=== PATIENT | male | born 1970 | race Caucasian/White ===

== ENCOUNTER 2023-08-05 10:56 | Outpatient (REF) | payer SELFPAY ==
[2023-08-05 13:05] LABS: MANUAL DIFF FLAG NO
[2023-08-05 13:25] LABS: Basophils Percent Auto 0.7 % (0-2); Eosinophils Absolute Auto 0.1 X10*3/uL (0.0-0.4); Eosinophils Percent Auto 1.1 % (0-4); Hematocrit 40.8 % (42.0-52.0); Hemoglobin 14.2 g/dl (14.0-18.0); Imm Gran Abs Auto 0.02 X10*3/uL (0.00-0.03); Imm Gran Pct Auto 0.4 % (0.0-0.4); Lymphocytes Absolute Auto 1.8 X10*3/uL (1.2-4.9); Lymphocytes Percent Auto 33.1 % (20-40); Mean Corpuscular HGB Conc 34.8 g/dl (31.0-36.0); Mean Corpuscular Hemoglobin 30.9 pg (27.0-33.0); Mean Corpuscular Volume 88.7 fL (80.0-98.0); Monocytes Absolute Auto 0.4 X10*3/uL (0.1-1.2); Monocytes Percent Auto 6.5 % (2-11); Neutrophils Absolute Auto 3.1 x10*3/uL (2.0-8.3); Neutrophils Percent Auto 58.2 % (45-73); Platelet Count 236 X10*3/uL (160-400); Red Cell Distribution Width 11.5 % (11.0-16.0); White Blood Count 5.4 X10*3/uL (4.8-10.8)
[2023-08-05 13:35] LABS: Estimated Average Glucose 103 mg/dL; Hemoglobin A1c % 5.2 % (<6.0)
[2023-08-05 13:57] LABS: Cortisol Random 9.8 ug/dL
[2023-08-05 14:00] LABS: Ferritin 102 ng/mL (20-250); Free T4 (Free Thyroxine) 0.84 ng/dL (0.71-1.85); Thyroid Stimulating Hormone 1.15 uIU/mL (0.32-4.0)
[2023-08-05 14:04] LABS: Alanine Aminotransferase 25 U/L (0-40); Alkaline Phosphatase 36 U/L (39-117); Amylase 88 U/L (28-100); Anion Gap 11 (12-20); Aspartate Amino Transferase 21 U/L (5-37); Bilirubin Total 0.5 mg/dL (0.0-1.0); Blood Urea Nitrogen 12 mg/dL (9-16); C Reactive Protein < 0.04 mg/dL (< or = 0.50); Calcium 9.1 mg/dL (8.4-10.2); Carbon Dioxide 25 mmol/L (22-29); Chloride 108 mmol/L (96-108); Estimated Glomerular Filt Rate > 60; Glucose Random 100 mg/dL (60-115); Iron 63 mcg/dL (45-160); Lipase 93 U/L (8-78); Percent Iron Saturation 24 % (15-50); Potassium 4.1 mmol/L (3.3-5.1); Sodium 140 mmol/L (135-145); Total Iron Binding Capacity 262 mcg/dL (228-428); Total Protein 6.7 g/dL (6.5-8.0); Unsaturated Iron Binding 199 ug/dL
[2023-08-05 14:06] LABS: Erythrocyte Sedimentation Rate 3 MM/HR (0-15)
[2023-08-07 01:38] LABS: Thyroid Peroxidase Antibodies 2 IU/mL (<9)
[2023-08-07 15:54] LABS: Calcium (PTHI) 8.9 mg/dL (8.6-10.3); PTHI 42 pg/mL (16-77)
== END 2023-08-05 10:57 | disposition home or self-care (01) ==
LOC: HO.MANLDS 10:56
PROVIDERS: Visit Provider Physician Assistant
DX: R63.4 Abnormal weight loss (principal); R73.01 Impaired fasting glucose; D64.9 Anemia, unspecified
CPT/HCPCS: 36415; 80053; 82150; 82533; 82728; 83036; 83540; 83690; 83970; 84439; 84443; 85025; 85652; 86140; 86376

== ENCOUNTER 2023-10-07 10:18 | Outpatient (REF) | payer BC, SELFPAY ==
[2023-10-07 13:29] LABS: Appearance Urine Clear; Color Urine Yellow; Glucose Urine UA Negative (Negative); Leukocyte Esterase Urine Negative (Negative); Nitrite Urine Negative (Negative); Specific Gravity - Urine <= 1.005 (1.005-1.025); Urine Blood Negative (Negative); Urine Ketones Negative (Negative); Urine Protein Negative (Neg-Trace)
[2023-10-07 13:36] LABS: Bacteria Urine None Seen (None Seen); Hyaline Casts Urine 0-2 /LPF (0-2); RBC Urine 0-2 /HPF (0-2); Squamous Epithelial Cell Urine 0-2 /HPF (0-2); WBC Urine 0-5 /HPF (0-5)
== END 2023-10-07 10:19 | disposition home or self-care (01) ==
LOC: HO.MANLDS 10:18
PROVIDERS: Visit Provider Physician Assistant
DX: R30.0 Dysuria (principal)
CPT/HCPCS: 81001

== ENCOUNTER 2024-04-18 14:19 | Outpatient (REF) | payer BC, SELFPAY ==
[2024-04-18 18:31] LABS: Uric Acid 5.2 mg/dL (3.4-7.0)
[2024-04-19 13:28] LABS: Lyme Abs Screen <0.90 index
[2024-04-21 12:53] LABS: A phagocytophilum IgG <1:64 (<1:64); A phagocytophilum IgM <1:20 (<1:20)
== END 2024-04-18 14:20 | disposition home or self-care (01) ==
LOC: HO.MANLDS 14:19
PROVIDERS: Visit Provider Physician Assistant
DX: M25.561 Pain in right knee (principal)
CPT/HCPCS: 36415; 84550; 86617; 86618; 86666